=== PATIENT | female | born 1930 | race African-American/Black ===

== ENCOUNTER 2019-04-05 23:22 | Emergency (ER) | payer OTHER ==
[~2019-04-05] VITALS: Ht 162.6 cm; Wt 63.0 kg
[2019-04-06 05:00] VITALS: BP 154/46
[2019-04-06] MEDS ORDERED: LISINOPRIL 10MG TABLET PO ONE (09:30)
== END 2019-04-06 09:51 | disposition home or self-care (01) ==
LOC: ER 23:22
DX: M25.511 Pain in right shoulder (principal); I10 Essential (primary) hypertension; F03.90 Unspecified dementia, unspecified severity, without behavioral disturbance, psychotic disturbance, mood disturbance, and anxiety; E03.9 Hypothyroidism, unspecified; Z88.6 Allergy status to analgesic agent
CPT/HCPCS: 73030; 99284